=== PATIENT | male | born 1940 | race Hispanic/Latino ===

== ENCOUNTER 2018-03-21 15:38 | Inpatient (IN) | payer MEDICARE, OTHER ==
[2018-03-21] MEDS ORDERED: cefTRIAXone 1 gm 1 GM/100 ML BAG IVPB STA (16:48)
[2018-03-21] MEDS ORDERED: Azithromycin 500MG/NS 250ml 500 MG/250 ML BAG IVPB STA (16:49)
--- NOTE | 2018-03-21 17:08 | ED PDOC ---
Arrival/HPI - General Chief Complaint: Cough, Cold, Congestion Time Seen by Provider: 03/21/18 16:15 Historian: Patient - History of Present Illness Narrative History of Present Illness (Text): 03/21/18 16:55 77yo male with pmhx of CAD s/p stents (June 2018) referred to ED by for Pneumonia. Patent reports one and half week of cough. states the cough improved 2days ago and he went to Urgent care today for evaluation. states Chest xray was done while he was at the and he was told he have Pneumonia and was referred to ED for IV antibiotics.He denies fever, chills, chest pain, SOB, diaphoresis, night sweats, back pain, sick contact, travel, any other complaint. Past Medical History - Provider Review Nursing Documentation Reviewed: Yes - Infectious Disease Hx of Infectious Diseases: None - Cardiac Other/Comment: open heart - Pulmonary Hx Respiratory Disorders: No - HEENT Hx HEENT Disorder: No - Integumentary Hx Dermatological Disorder: No - Musculoskeletal/Rheumatological Hx Musculoskeletal Disorders: No - Genitourinary/Gynecological Hx Genitourinary Disorders: No - Psychiatric Hx Substance Use: No - Anesthesia Hx Anesthesia: No Family/Social History - Physician Review Nursing Documentation Reviewed: Yes Family/Social History: Unknown Family HX Smoking Status: Unknown If Ever Smoked Hx Alcohol Use: No Hx Substance Use: No Allergies/Home Meds Allergies/Adverse Reactions: Allergies No Known Allergies Allergy (Verified 03/21/18 16:18) Review of Systems - Physician Review All systems were reviewed & negative as marked: Yes - Review of Systems Constitutional: Normal Eyes: Normal ENT: Normal Respiratory: Cough. absent: Sputum Cardiovascular: Normal Gastrointestinal: Normal Genitourinary Male: Normal Musculoskeletal: Normal Skin: Normal Neurological: Normal Endocrine: Normal Hemo/Lymphatic: Normal Psychiatric: Normal Physical Exam Vital Signs Reviewed: Yes Vital Signs Temp Pulse Resp BP Pulse Ox 03/21/18 16:14 98.4 F 72 18 161/74 H 98 Temperature: Afebrile Blood Pressure: Normal Pulse: Regular Respiratory Rate: Normal Appearance: Positive for: Well-Appearing, Non-Toxic, Comfortable Pain Distress: None Mental Status: Positive for: Alert and Oriented X 3 - Systems Exam Head: Present: Atraumatic, Normocephalic Pupils: Present: PERRL Extroacular Muscles: Present: EOMI Conjunctiva: Present: Normal Mouth: Present: Moist Mucous Membranes Neck: Present: Normal Range of Motion Respiratory/Chest: Present: Clear to Auscultation, Good Air Exchange. No: Respiratory Distress, Accessory Muscle Use, Wheezes, Decreased Breath Sounds, Rales, Retracting, Rhonchi Cardiovascular: Present: Regular Rate and Rhythm, Normal S1, S2. No: Murmurs Abdomen: No: Tenderness, Distention, Peritoneal Signs Back: Present: Normal Inspection Upper Extremity: Present: Normal Inspection. No: Cyanosis, Edema Lower Extremity: Present: Normal Inspection. No: Edema Neurological: Present: GCS=15, CN II-XII Intact, Speech Normal Skin: Present: Warm, Dry, Normal Color. No: Rashes Psychiatric: Present: Alert, Oriented x 3, Normal Insight, Normal Concentration Medical Decision Making ED Course and Treatment: 03/21/18 17:09 77yo male referred to ED for Pneumonia. Pt was afebrile and hemodynamically stable in ED. Pt present with a copy of the chest xray report from [facility] Chest xray Impression - Lingular pneumonia Labs Rocephin, Zithromax PT's Curb65 score is two. Lab showed no leukocytosis and elevated BUN/Cr was noted. Secondary to his comorbidity and Curb65 score he will be admitted for IV abx Result and plan was DW the pt and he agreed - Medication Orders Current Medication Orders: Ceftriaxone Sodium (Rocephin 1 Gram Ivpb) 1 gm in 100 mls @ 200 mls/hr IVPB STAT STA; Protocol Stop: 03/21/18 17:17 Azithromycin (Zithromax 500mg In Ns) 500 mg in 250 mls @ 167 mls/hr IVPB STAT STA; Protocol Stop: 03/21/18 18:18 Disposition/Present on Arrival - Present on Arrival Any Indicators Present on Arrival: No History of DVT/PE: No History of Uncontrolled Diabetes: No Urinary Catheter: No History of Decub. Ulcer: No History Surgical Site Infection Following: None - Disposition Have Diagnosis and Disposition been Completed?: Yes Diagnosis: Pneumonia Disposition: HOSPITALIZED Disposition Time: 18:10 Patient Plan: Admission Patient Problems: Current Active Problems Problem Status Onset Pneumonia Acute Condition: STABLE Forms: [employer] (German)
[2018-03-21 17:19] LABS: BASO # 0.04 K/mm3 (0.0-2.0); BASO % 0.4 % (0.0-3.0); EOS # 0.1 (0.0-0.7); EOS % 1.2 % (1.5-5.0); GRAN # 5.91 (1.4-6.5); GRAN % 65.9 % (50.0-68.0); HEMOGLOBIN 13.2 g/dL (14.0-18.0); LYMPH # 2.5 (1.2-3.4); LYMPH % 28.1 % (22.0-35.0); MEAN CORPUSCULAR HEMOGLOBIN 30.2 pg (25.0-35.0); MEAN CORPUSCULAR HGB CONC 33.9 g/dl (31.0-37.0); MEAN PLATELET VOLUME 9.3 fl (7.0-11.0); MONO # 0.4 (0.1-0.6); MONO % 4.4 % (1.0-6.0); RBC 4.37 10^6/uL (3.5-6.1); RED CELL DISTRIBUTION WIDTH 12.7 % (11.5-14.5)
[2018-03-21 17:20] LABS: INR 1.13; PARTIAL THROMBOPLASTIN TIME 27.3 Seconds (25.1-36.5); PROTHROMBIN TIME 12.9 SECONDS (9.4-12.5)
[2018-03-21 17:35] LABS: ALB/GLOB RATIO 1.4 (1.1-1.8); ALBUMIN 4.6 g/dL (3.0-4.8); CALCIUM 9.4 mg/dL (8.4-10.5)
[2018-03-21] MEDS ORDERED: Lactated Ringer's 1,000 ML IV SCH (19:30)
--- NOTE | 2018-03-21 19:59 | CP.PCM.HP ---
History of Present Illness - History of Present Illness History of Present Illness: Poornima Crawford, PGY1 H&P for Dr. Menchaca Service This is a 77 year old male with PMH of CABG x3 vessels in June 2017 presenting to the hospital for 10 day history of productive cough with clear phlegm. Patient states his symptoms resolved 2 days ago but he went to [facility] today to rule out any sickness and CXR showed pneumonia in the lingula and was recommended to come to ER. He currently denies CP, SOB, fevers, chills, nausea, vomiting, headaches, back pain, abdominal pain, numbness, tingling, swelling, weakness, diarrhea, constipation, recent travel, trauma and lifestyle change including medication, diet and weight. 12 point ROS noted here, otherwise unremarkable. PMD: none PMH: CABG x3 vessels SH: denies drinking, smoking and drugs Sx: CABG x3 vessels in June 2017 All: NKDA FH: CVA Meds: atorvostatin 40mg, metoprolol (unknown dose) Present on Admission - Present on Admission Any Indicators Present on Admission: No Past Patient History - Infectious Disease Hx of Infectious Diseases: None - Past Social History Smoking Status: Unknown If Ever Smoked - CARDIAC Other/Comment: open heart - PULMONARY Hx Respiratory Disorders: No - HEENT Hx HEENT Problems: No - INTEGUMENTARY Hx Dermatological Problems: No - MUSCULOSKELETAL/RHEUMATOLOGICAL Hx Musculoskeletal Disorders: No - GENITOURINARY/GYNECOLOGICAL Hx Genitourinary Disorders: No - PSYCHIATRIC Hx Substance Use: No - ANESTHESIA Hx Anesthesia: No Meds Allergies/Adverse Reactions: Allergies Allergy/AdvReac Type Severity Reaction Status Date / Time No Known Allergies Allergy Verified 03/21/18 16:18 Physical Exam - Constitutional Appears: No Acute Distress - Head Exam Head Exam: ATRAUMATIC, NORMAL INSPECTION - Eye Exam Eye Exam: EOMI Pupil Exam: PERRL - ENT Exam ENT Exam: Mucous Membranes Moist - Neck Exam Neck exam: Positive for: Normal Inspection - Respiratory Exam Respiratory Exam: Clear to Auscultation Bilateral. absent: Accessory Muscle Use, Wheezes, Respiratory Distress - Cardiovascular Exam Cardiovascular Exam: REGULAR RHYTHM, +S1, +S2 - GI/Abdominal Exam GI & Abdominal Exam: Normal Bowel Sounds, Soft. absent: Firm, Guarding, Tend erness - Extremities Exam Extremities exam: Positive for: normal inspection, pedal pulses present. Negative for: calf tenderness, tenderness - Back Exam Back exam: NORMAL INSPECTION - Neurological Exam Neurological exam: Alert, CN II-XII Intact, Oriented x3 - Skin Skin Exam: Normal Color, Warm Results - Vital Signs Recent Vital Signs: Last Vital Signs Temp 98.4 F 03/21/18 16:14 Pulse 76 03/21/18 17:38 Resp 18 03/21/18 17:38 BP 150/68 03/21/18 17:38 Pulse Ox 97 03/21/18 17:38 - Labs Result Diagrams: 03/21/18 17:11 03/21/18 17:11 Labs: Laboratory Results - last 24 hr 03/21/18 03/21/18 03/21/18 17:11 17:11 17:11 WBC 9.0 RBC 4.37 Hgb 13.2 L Hct 38.9 L MCV 89.0 MCH 30.2 MCHC 33.9 RDW 12.7 Plt Count 191 MPV 9.3 Gran % 65.9 Lymph % (Auto) 28.1 [place] % (Auto) 4.4 Eos % (Auto) 1.2 L Baso % (Auto) 0.4 Gran # 5.91 Lymph # (Auto) 2.5 [place] # (Auto) 0.4 Eos # (Auto) 0.1 Baso # (Auto) 0.04 PT 12.9 H INR 1.13 APTT 27.3 Sodium 141 Potassium 4.6 Chloride 108 H Carbon Dioxide 25 Anion Gap 13 BUN 26 H Creatinine 1.6 H Est GFR ( Amer) 51 Est GFR (Non-Af Amer) 42 Random Glucose 102 Calcium 9.4 Total Bilirubin 1.3 AST 32 ALT 31 Alkaline Phosphatase 63 Total Protein 7.9 Albumin 4.6 Globulin 3.4 Albumin/Globulin Ratio 1.4 Assessment & Plan - Assessment and Plan (Free Text) Assessment: This is a 77 year old male with PMH of CABG x3 vessels in June 2017 presenting to the hospital for 10 day history of productive cough with clear phlegm. Plan: CAP -CURB-65 of 1 -CXR official report from [facility] revealed lingular pneumonia -echo -EKG -xopenex -CT chest without contrast -legionella, influenza, mycoplasma, strep -serum lactate, ESR, CRP -procalcitonin -doxycycline, ceftriaxone day 1 -blood cx, urine cx -ID on consult, Dr. Martin Hx of CAD s/p CABG -lopressor 25mg BID -statin PPX with heparin and protonix Patient case discussed with attending, Dr. Menchaca
[2018-03-22] MEDS: Levalbuterol 0.63 MG/3 ML Inhal Soln UD IH SCH ×5 (02:13→21:11)
[2018-03-22] MEDS: Pantoprazole 40 mg EC Tab PO SCH (05:48)
[2018-03-22] MEDS: cefTRIAXone 2 GM IN NS 2 GM/100 ML BAG IVPB SCH (10:52)
[2018-03-22 11:44] VITALS: BMI 24.7
[2018-03-22 12:10] LABS: BASO # 0.02 K/mm3 (0.0-2.0); BASO % 0.3 % (0.0-3.0); EOS # 0.1 (0.0-0.7); EOS % 1.2 % (1.5-5.0); GRAN # 4.56 (1.4-6.5); GRAN % 70.6 % (50.0-68.0); HEMOGLOBIN 12.2 g/dL (14.0-18.0); LYMPH # 1.5 (1.2-3.4); LYMPH % 23.1 % (22.0-35.0); MEAN CELL VOLUME 89.1 fl (80.0-105.0); MEAN CORPUSCULAR HEMOGLOBIN 30.1 pg (25.0-35.0); MEAN CORPUSCULAR HGB CONC 33.8 g/dl (31.0-37.0); MONO # 0.3 (0.1-0.6); MONO % 4.8 % (1.0-6.0); RBC 4.05 10^6/uL (3.5-6.1); RED CELL DISTRIBUTION WIDTH 12.7 % (11.5-14.5); WHITE BLOOD COUNT 6.5 10^3/uL (4.5-11.0)
[2018-03-22 12:23] LABS: ALB/GLOB RATIO 1.3 (1.1-1.8); ALBUMIN 3.9 g/dL (3.0-4.8); ALT/SGPT 33 U/L (7-56); AST/SGOT 29 U/L (17-59); BILIRUBIN,DIRECT 0.1 mg/dL (0.0-0.4); BLOOD UREA NITROGEN 21 mg/dL (7-21); CALCIUM 9.2 mg/dL (8.4-10.5); GFR NON-AFRICAN AMERICAN 54; HDL CHOLESTEROL 33 mg/dL (29-60)
--- NOTE | 2018-03-22 12:29 | CT ---
Date of service: 03/21/2018 PROCEDURE: CT Chest without contrast HISTORY: pneumonia COMPARISON: None. TECHNIQUE: Contiguous axial images were obtained through the chest without intravenous contrast enhancement. Sagittal and coronal reconstructions were performed. Radiation dose: Total exam DLP = 359.96 mGy-cm. This CT exam was performed using one or more of the following dose reduction techniques: Automated exposure control, adjustment of the mA and/or kV according to patient size, and/or use of iterative reconstruction technique. FINDINGS: LUNGS: Clear lungs. Visualized airway clear MEDIASTINUM: Unremarkable thoracic aorta. No aneurysm. Normal sized heart. Main pulmonary artery unremarkable. No vascular congestion. No lymphadenopathy. Atherosclerotic calcification and mural plaque present. Findings are seen throughout the aorta which is non aneurysmal. PLEURA: No pleural fluid. No pneumothorax. BONES: No fracture. No destructive lesion. UPPER ABDOMEN: Cholelithiasis without CT evidence of acute cholecystitis. OTHER FINDINGS: None. IMPRESSION: No significant or acute findings to account for/ related to the clinical presentation. Additional benign and/or incidental findings described above. Concordant results (preliminary interpretation) provided by [employer]. Procedure Completed: 23:20. Preliminary Report: Dictated and Authenticated: 00:23. Final Interpretation: 12:25. March 22, 2018
[2018-03-22 12:38] LABS: LDL CHOLESTEROL 64 mg/dL (0-129)
--- NOTE | 2018-03-22 13:16 | CP.PCM.CON ---
History of Present Illness - History of Present Illness History of Present Illness: 77 year old male with PMH of CAD S/P CABG came in to [facility] because of about a week and a half of productive cough associated with clear sputum and some shortness of breath. He did not take any meds or antibiotics and was just taking over the counter meds. His cough continued and could not get his PMD to see him because of the holidays and the patient went to an urgent care center where a CXR was done which apparently showed lingula infiltrates and was told to the ED, and then he was admitted. He states that his cough has significantly improved, no fever or chills, no nausea or vomiting, no diarrhea, no abdominal pain, no dysuria, no sore throat, no rhinorrhea, no headache or dizziness. Infectious Diseases consult is requested to further evaluate and manage. Review of Systems - Review of Systems All systems: reviewed and no additional remarkable complaints except (as per HPI) Past Patient History - Infectious Disease Hx of Infectious Diseases: None - Past Social History Smoking Status: Unknown If Ever Smoked - CARDIAC Other/Comment: open heart - PULMONARY Hx Respiratory Disorders: No - HEENT Hx HEENT Problems: No - INTEGUMENTARY Hx Dermatological Problems: No - MUSCULOSKELETAL/RHEUMATOLOGICAL Hx Musculoskeletal Disorders: No - GENITOURINARY/GYNECOLOGICAL Hx Genitourinary Disorders: No - PSYCHIATRIC Hx Substance Use: No - ANESTHESIA Hx Anesthesia: No Meds Allergies/Adverse Reactions: Allergies Allergy/AdvReac Type Severity Reaction Status Date / Time No Known Allergies Allergy Verified 03/21/18 16:18 - Medications Medications: Current Medications Acetaminophen (Tylenol 325mg Tab) 650 mg PO Q6 PRN PRN Reason: TEMP>=99.5F Acetaminophen (Tylenol 650 Mg Supp) 650 mg RC Q6H PRN PRN Reason: TEMP>=99.5F Aspirin (Ecotrin) 81 mg PO DAILY [facility] Atorvastatin Calcium (Lipitor) 40 mg PO DIN [facility] Docusate Sodium (Colace) 100 mg PO TID [facility] Heparin Sodium (Porcine) (Heparin) 5,000 units SC Q8 [facility]; Protocol Last Admin: 03/22/18 05:48 Dose: 5,000 units Doxycycline Hyclate 100 mg/ (Sodium Chloride) 100 mls @ 100 mls/hr IVPB Q12 [facility]; Protocol Last Admin: 03/21/18 23:54 Dose: 100 mls/hr Lactated Ringer's (Lactated Ringer's) 1,000 mls @ 100 mls/hr IV .Q10H [facility] Last Admin: 03/21/18 20:28 Dose: 100 mls/hr Ceftriaxone Sodium (Rocephin 2 Gm Ivpb) 2 gm in 100 mls @ 100 mls/hr IVPB DAILY [facility]; Protocol Levalbuterol HCl (Xopenex) 0.63 mg IH [id number] [facility] Last Admin: 03/22/18 02:13 Dose: 0.63 mg Metoprolol Tartrate (Lopressor) 25 mg PO BID [facility] Ondansetron HCl (Zofran Inj) 4 mg IVP Q4H PRN PRN Reason: Nausea/Vomiting Pantoprazole Sodium (Protonix Ec Tab) 40 mg PO 0600 [facility] Last Admin: 03/22/18 05:48 Dose: 40 mg Physical Exam - Constitutional Appears: Non-toxic, No Acute Distress - Head Exam Head Exam: NORMAL INSPECTION - Neck Exam Neck exam: Negative for: Lymphadenopathy, Meningismus - Respiratory Exam Respiratory Exam: absent: Rales, Rhonchi, Wheezes - Cardiovascular Exam Cardiovascular Exam: +S1, +S2 - GI/Abdominal Exam GI & Abdominal Exam: Soft. absent: Tenderness Results - Vital Signs Recent Vital Signs: Last Vital Signs Temp 97.7 F 03/21/18 22:58 Pulse 67 03/21/18 22:58 Resp 19 03/21/18 22:58 BP 133/71 03/21/18 22:58 Pulse Ox 99 03/21/18 22:58 - Labs Result Diagrams: 03/22/18 12:00 03/22/18 12:00 Labs: Laboratory Results - last 24 hr 03/21/18 03/21/18 03/21/18 17:11 17:11 17:11 WBC 9.0 RBC 4.37 Hgb 13.2 L Hct 38.9 L MCV 89.0 MCH 30.2 MCHC 33.9 RDW 12.7 Plt Count 191 MPV 9.3 Gran % 65.9 Lymph % (Auto) 28.1 [place] % (Auto) 4.4 Eos % (Auto) 1.2 L Baso % (Auto) 0.4 Gran # 5.91 Lymph # (Auto) 2.5 [place] # (Auto) 0.4 Eos # (Auto) 0.1 Baso # (Auto) 0.04 ESR PT 12.9 H INR 1.13 APTT 27.3 Sodium 141 Potassium 4.6 Chloride 108 H Carbon Dioxide 25 Anion Gap 13 BUN 26 H Creatinine 1.6 H Est GFR ( Amer) 51 Est GFR (Non-Af Amer) 42 Random Glucose 102 Fructosamine Lactic Acid Uric Acid Calcium 9.4 Total Bilirubin 1.3 AST 32 ALT 31 Alkaline Phosphatase 63 Total Protein 7.9 Albumin 4.6 Globulin 3.4 Albumin/Globulin Ratio 1.4 Influenza Typ A,B (EIA) 03/21/18 03/21/18 03/21/18 20:00 20:00 20:30 WBC RBC Hgb Hct MCV MCH MCHC RDW Plt Count MPV Gran % Lymph % (Auto) [place] % (Auto) Eos % (Auto) Baso % (Auto) Gran # Lymph # (Auto) [place] # (Auto) Eos # (Auto) Baso # (Auto) ESR 6 PT INR APTT Sodium Potassium Chloride Carbon Dioxide Anion Gap BUN Creatinine Est GFR ( Amer) Est GFR (Non-Af Amer) Random Glucose Fructosamine Lactic Acid Uric Acid 6.9 Calcium Total Bilirubin AST ALT Alkaline Phosphatase Total Protein Albumin Globulin Albumin/Globulin Ratio Influenza Typ A,B (EIA) Negative for flu a/b 03/21/18 03/21/18 21:00 21:00 WBC RBC Hgb Hct MCV MCH MCHC RDW Plt Count MPV Gran % Lymph % (Auto) [place] % (Auto) Eos % (Auto) Baso % (Auto) Gran # Lymph # (Auto) [place] # (Auto) Eos # (Auto) Baso # (Auto) ESR PT INR APTT Sodium Potassium Chloride Carbon Dioxide Anion Gap BUN Creatinine Est GFR ( Amer) Est GFR (Non-Af Amer) Random Glucose Fructosamine 251 Lactic Acid 0.8 Uric Acid Calcium Total Bilirubin AST ALT Alkaline Phosphatase Total Protein Albumin Globulin Albumin/Globulin Ratio Influenza Typ A,B (EIA) Assessment & Plan - Assessment and Plan (Free Text) Plan: Assessment consider acute bronchitis R/O pneumonia CAD S/P CABG Plan started Rocephin and Doxycycline pending blood cx, PCT, urine Legionella Ag follow up CT chest will monitor clinically
[2018-03-22] MEDS ORDERED: Ergocalciferol 50,000 Intl Units Cap PO SCH (16:30)
[2018-03-22] MEDS ORDERED: Lactated Ringer's 1,000 ML IV SCH (17:00)
--- NOTE | 2018-03-22 17:29 | CARD ---
APPROVED REPORT Date of service: 03/22/2018 EXAM: Two-dimensional and M-mode echocardiogram with Doppler and color Doppler. INDICATION CABG 2D DIMENSIONS Left Atrium (2D)4.4 (1.6-4.0cm)IVSd1.2 (0.7-1.1cm) LVDd4.4 (3.9-5.9cm)PWd1.4 (0.7-1.1cm) LVDs3.4 (2.5-4.0cm)FS (%) 22.3 % LVEF (%)45.2 (>50%) M-Mode DIMENSIONS Aortic Root2.90 (2.2-3.7cm)Aortic Cusp Exc.1.50 (1.5-2.0cm) Aortic Valve AoV Peak Sbccjznp623.0cm/Dieudonne Peak GR.8mmHg Mitral Valve MV E Sfouenaz28.1cm/sMV A Uqiumtov14.6cm/sE/A ratio0.6 TDI E/Lateral E'0.0E/Medial E'0.0 Tricuspid Valve TR Peak [id number]/sRAP [id number] Peak Gr.11mmHg [id number] LEFT VENTRICLE The left ventricle is normal size. There is borderline concentric left ventricular hypertrophy. The systolic function is mildly impaired. Hypokinetic [place] Transmitral Doppler flow pattern is Grade I-abnormal relaxation pattern. RIGHT VENTRICLE The right ventricle is normal size. There is normal right ventricular wall thickness. The right ventricular systolic function is normal. ATRIA The left atrium is mildly dilated. The right atrium size is normal. AORTIC VALVE The aortic valve is mildly thickened. There is mild to moderate aortic regurgitation. There is no aortic valvular stenosis. MITRAL VALVE The mitral valve is mildly thickened. Mitral regurgitation is mild. There is no mitral valve stenosis. GREAT VESSELS The aortic root is normal in size. PERICARDIAL EFFUSION There is a trace pericardial effusion. <Conclusion> The left ventricle is normal size. There is borderline concentric left ventricular hypertrophy. The systolic function is mildly impaired. Hypokinetic [place] Transmitral Doppler flow pattern is Grade I-abnormal relaxation pattern. There is mild to moderate aortic regurgitation. Mitral regurgitation is mild.
--- NOTE | 2018-03-22 20:44 | CARD ---
APPROVED REPORT Date of service: 03/22/2018 EKG Measurement Heart [id number] <Conclusion> Normal sinus rhythm Low voltage QRS Possible Inferior infarct, age undetermined Poor R wave progression in Precordial leads Abnormal ECG
[2018-03-23] MEDS: Levalbuterol 0.63 MG/3 ML Inhal Soln UD IH SCH ×2 (01:56→09:36)
[2018-03-23] MEDS: Pantoprazole 40 mg EC Tab PO SCH (06:02)
[2018-03-23 08:13] VITALS: RESP 20; TEMP 98.9; O2SAT 96
[2018-03-23] MEDS: cefTRIAXone 2 GM IN NS 2 GM/100 ML BAG IVPB SCH (09:39)
[2018-03-23 09:40] VITALS: BP 138/70; PULSE 88
[2018-03-23 10:10] LABS: BASO # 0.02 K/mm3 (0.0-2.0); BASO % 0.4 % (0.0-3.0); EOS # 0.2 (0.0-0.7); EOS % 3.3 % (1.5-5.0); GRAN # 2.76 (1.4-6.5); GRAN % 61.7 % (50.0-68.0); HEMOGLOBIN 11.5 g/dL (14.0-18.0); LYMPH # 1.3 (1.2-3.4); LYMPH % 28.3 % (22.0-35.0); MEAN CELL VOLUME 88.6 fl (80.0-105.0); MEAN CORPUSCULAR HEMOGLOBIN 29.8 pg (25.0-35.0); MEAN CORPUSCULAR HGB CONC 33.6 g/dl (31.0-37.0); MEAN PLATELET VOLUME 9.3 fl (7.0-11.0); MONO # 0.3 (0.1-0.6); MONO % 6.3 % (1.0-6.0); RBC 3.86 10^6/uL (3.5-6.1); RED CELL DISTRIBUTION WIDTH 12.6 % (11.5-14.5); WHITE BLOOD COUNT 4.5 10^3/uL (4.5-11.0)
[2018-03-23 10:19] LABS: ALB/GLOB RATIO 1.3 (1.1-1.8); ALBUMIN 3.5 g/dL (3.0-4.8); BILIRUBIN,DIRECT 0.1 mg/dL (0.0-0.4); CALCIUM 8.9 mg/dL (8.4-10.5)
[2018-03-23 11:08] LABS: GLYCOMARK(R) 14.5 mcg/mL (7.3-36.6)
--- NOTE | 2018-03-23 12:48 | PN ---
DATE: 03/23/2018 SUBJECTIVE: The patient is seen earlier today in 375, bed 2. The patient has no fevers and no chills. He is doing much better. He states overall he is much improved, and he had been having cough which is also improved. OBJECTIVE: VITAL SIGNS: Temperature is 98, blood pressure is 170/90, respiratory 20, heart rate of 61. HEENT: Unremarkable. NECK: Supple. LUNGS: Have decreased breath sounds. HEART: Normal S1, S2. ABDOMEN: Soft, nontender. LABORATORY EXAMINATION: Reveals a white count of 4.5, hemoglobin of 11. Chemistries are noted and procalcitonin 0.05 and creatinine is 1.4 and glucose of 121 and influenza is negative. Microbiology reveals the blood cultures are negative. The sputum cultures are pending. Currently, the patient is on IV doxycycline and ceftriaxone. ASSESSMENT AND PLAN: A 77-year-old male who was seen earlier today who is awake and alert and inquiring about going home, who is admitted with a cough. The patient has been afebrile in the hospital with negative cultures, normal white count. The patient had a CT scan of the chest which shows lungs to be clear and has negative procalcitonin, with persistent cough, with bronchitis and negative procalcitonin, negative culture with an EKG consistent with QTC of 445. The patient had been on Levaquin as outpatient. We will discontinue the doxycycline. Discontinue the ceftriaxone and use p.o. Zithromax. We will order pertussis workup. The patient's cough has been significant for over almost 2 weeks. Mir Martin MD
--- NOTE | 2018-03-23 22:09 | DS ---
HISTORY OF PRESENT ILLNESS: The patient was seen in room 575, bed 2. The patient anxiously wants to go home. The patient refused the morning blood work, but later convinced to do the blood work. The patient was not in any distress noted. PHYSICAL EXAMINATION: VITAL SIGNS: T-max is 98.9 to 98.7, heart rate 61 to 88, blood pressure 139/70, 138/70, 110/56, respirations 20, O2 sat 96%. HEENT: Head is normocephalic, atraumatic. HEENT examination shows pink conjunctivae. Anicteric sclerae. No oropharyngeal lesion. NECK: No neck rigidity. CHEST: Kyphosis. Positive median sternotomy surgical scar noted. LUNGS: Shows no audible crackle, rales or wheezing. CARDIOVASCULAR: Shows S1, S2, regular rhythm. Questionable soft systolic murmur at the left sternal border, right second intercostal space, left second intercostal space. ABDOMEN: Soft. Positive bowel sound. No palpable hepatosplenomegaly. GENITALIA: Male. RECTAL: Deferred. EXTREMITIES: Shows no pitting edema. No calf tenderness. No Homans' sign. NEUROLOGIC: The patient is alert, awake, oriented x3. He is able to move upper and lower extremity without assistance. Gait examination is not tested. VASCULAR: Palpable pulses. Cranial nerves II-XII intact. DIAGNOSTICS: On 03/23/2018, WBC 4.5, hemoglobin and hematocrit 11.5, 34.2, platelets 143. Sodium 139, potassium 4.1, chloride 107, CO2 26, anion gap 9, BUN 22, creatinine 1.4, GFR , glucose 121, hemoglobin A1c 5.7. LFTs are normal. Vitamin D 25-hydroxy 21. Influenza, mycoplasma serology is negative. Blood and sputum cultures negative. IMPRESSION: 1. Acute bronchitis with symptoms of cough, cold, congestion (resolved). 2. History of hypertension, hyperlipidemia. 3. Normocytic anemia. 4. Transient granulocytosis. 5. Status post acute kidney injury with prerenal kidney injury. 6. Prediabetes with hemoglobin A1c of 5.7. 7. Hypovitaminosis D. 8. History of hypercholesteremia. 9. Questionable left lingular pneumonia as per out outpatient chest x-ray. 10. Aortic atherosclerotic calcification and mural plaque. 11. Cholelithiasis. 12. Questionable possible ischemic cardiomyopathy with left ventricular ejection fraction of 45% and concentric left ventricular hypertrophy and mildly impaired systolic function and hypokinetic apex. 13. Grade 1 abnormal relaxation pattern. 14. Moderate aortic regurgitation. 15. Mild mitral regurgitation with mildly thickened mitral valve. 16. Age indeterminate inferior infarct. 17. Left lingular pneumonia. PLAN: At this time, the patient was cleared for discharge. The patient was discharged home with discharge followup with Dr. Menchaca within 1 week. DISCHARGE MEDICATIONS: Ecotrin 81 mg daily, Lipitor 40 mg daily Drisdol 50,000 units weekly, Levaquin 500 mg daily, Lopressor 25 mg twice a day. During this hospitalization, the patient was extensively explained about his diagnosis, test results at length. All questions concerned answered. The patient was advised close outpatient followup. The patient was advised to follow up with Dr. Menchaca within 1 week. Follow up with Dr. Kingston Miguel, the patient's primary from [facility] within 1 week. During this hospitalization, the patient was extensively explained about the details of his medical condition, diagnosis, treatment plan, discharge followup, medications, all explained to the patient at length and all questions concerned answered. Time spent in the discharge process was 45 minutes. Dictated and electronically signed, not read. David Menchaca MD
--- NOTE | 2018-03-25 09:32 | PN ---
DATE: 03/22/2018 SUBJECTIVE: The patient is seen lying in the bed in room 575, bed 2. Overnight nurse's notes were reviewed. The patient refused the morning labs. The patient was educated about the necessity of diagnostic testing. The patient was initially resistant, but sort of agreed to it. The patient denies any chest pain or shortness of breath, but complains of some cough which is almost resolved. OBJECTIVE: VITAL SIGNS: T-max 98, heart rate 62, 59, and 67, blood pressure 110/56 and 133/71, respirations 20, and O2 sat 99%. HEENT: Head; normocephalic and atraumatic. HEENT examination shows pinkish pale conjunctivae. Anicteric sclerae. No oropharyngeal lesion. NECK: No neck rigidity. CHEST: Kyphosis. LUNGS: Shows occasional rhonchi left more than the right. CARDIOVASCULAR: S1 and S2, regular rhythm. Questionable soft systolic murmur left sternal border, right second intercostal space, left second intercostal space. Positive median sternotomy surgical scar. ABDOMEN: Soft. Positive bowel sounds. No palpable hepatosplenomegaly noted. GENITALIA: Male. RECTAL: Deferred. EXTREMITIES: Shows no pitting edema. No calf tenderness. No Homans' sign. NEUROLOGIC: The patient is alert, awake, and oriented x3, is able to move upper and lower extremity without assistance. Gait examination is not tested. VASCULAR: Palpable pulses. PSYCHIATRIC: Negative. DIAGNOSTIC DATA: On 03/22/2018; WBC 6.5, hemoglobin and hematocrit 12.2 and 36.1, and platelets 157. Sodium 141, potassium 4.4, chloride 108, CO2 of 27, anion gap 11, BUN 21, creatinine 1.3, GFR greater than 60, glucose 112, hemoglobin A1c 5.7, fructosamine 251, calcium 9.2, phosphorus 2.7, and magnesium 1.9. LFTs are normal. Cholesterol 109, LDL 64, and HDL 33. PSA 1.3. Vitamin D 25-hydroxy 21.4. Influenza serologies are negative. The patient's echocardiogram, CT chest done, results pending. CAT scan of the chest results and the echocardiogram results are pending. IMPRESSION AND PLAN: 1. Questionable and possible community-acquired left lingular pneumonia. 2. Acute kidney injury (resolved). 3. History of coronary artery disease, coronary artery bypass graft. 4. Left ventricular ejection fraction of 45%. 5. Questionable ischemic cardiomyopathy. 6. Asymptomatic hypotension. 7. Mild normocytic anemia. 8. Granulocytosis. 9. Hypovitaminosis D. 10. Questionable prediabetes with hemoglobin A1c of 5.7. 11. History of hypertension and hyperlipidemia. 12. Bronchitis with left lingular pneumonia. Plan at this time, we are awaiting for the final results of the echocardiogram and a CAT scan of the chest. The patient was seen by Infectious Disease. The patient has been ordered repeat labs. Blood cultures, sputum cultures and urine cultures results are pending. Strep antigen Legionella, Mycoplasma pending. Current medications; Colace 100 mg three times a day, doxycycline 100 mg IV every 12 hours, Drisdol 50,000 units weekly, Ecotrin 81 mg daily, heparin 5000 subcutaneously every 8 hours, and Ringer's lactate 100 mL an hour. The patient's IV fluid will be decreased to 70 mL an hour. The patient is on Lipitor 40 mg daily, Lopressor 25 mg twice a day, Protonix 40 mg daily, Rocephin 2 g IV daily, Tylenol p.r.n. for fever, Xopenex nebulizer 0.63 mg every 6 hours, and Zofran 4 IV every 4 hours. The patient is on incentive spirometry every 2 hours and oxygen 2 L continuous. EKG pending. The patient is on SCDs, SCARLET stocking, and out of bed to chair. The patient's further management will be dependent upon the patient's clinical condition, hemodynamic status, and as per the patient response to therapeutic intervention, as per the patient's diagnostic test results and as per recommendation by all the physician involved in the care of the patient. We will review the CAT scan and CT of the chest and echocardiogram when available. The patient has been updated about his condition, diagnosis, treatment plan, management plan at length and all questions concerned answered to the patient's satisfaction. Dictated and electronically signed, not read. David Menchaca MD
== END 2018-03-23 13:14 | disposition home or self-care (01) | DRG 194 ==
LOC: ED 15:38 → ERH 18:42 → 5RSO 20:46
PROVIDERS: ADMIT Internal Medicine; ATTEND Internal Medicine
DX: J18.9 Pneumonia, unspecified organism (principal); N17.9 Acute kidney failure, unspecified; J20.9 Acute bronchitis, unspecified; I10 Essential (primary) hypertension; D64.9 Anemia, unspecified; E55.9 Vitamin D deficiency, unspecified; E78.00 Pure hypercholesterolemia, unspecified; R73.03 Prediabetes; I25.5 Ischemic cardiomyopathy; I08.0 Rheumatic disorders of both mitral and aortic valves; E78.5 Hyperlipidemia, unspecified; K80.20 Calculus of gallbladder without cholecystitis without obstruction; I25.10 Atherosclerotic heart disease of native coronary artery without angina pectoris; Z95.5 Presence of coronary angioplasty implant and graft; Z95.1 Presence of aortocoronary bypass graft; Z82.3 Family history of stroke